=== PATIENT | male | born 1975 ===

== ENCOUNTER → 2019-03-20 | Outpatient (CLI) | payer OTHER | END | disposition home or self-care (01) | LOC: CT 08:27 | DX: M48.02 Spinal stenosis, cervical region (principal); M47.892 Other spondylosis, cervical region; M50.10 Cervical disc disorder with radiculopathy, unspecified cervical region; E79.0 Hyperuricemia without signs of inflammatory arthritis and tophaceous disease; M25.511 Pain in right shoulder; M25.512 Pain in left shoulder | CPT/HCPCS: 70450; 70490 ==